=== PATIENT | female | born 1970 | race Caucasian/White ===

== ENCOUNTER → 2021-05-31 07:33 | Outpatient (CLI) | payer OTHER, SELFPAY ==
--- NOTE | 2021-05-31 07:38 | CT_ITS ---
STUDY: CT ABDOMEN AND PELVIS WITH AND WITHOUT CONTRAST REASON FOR EXAM: Female, 51 years old. HEMATURIA RADIATION DOSAGE (If Supplied By Facility): CTDIvol = ( 13.25 ) mGy, DLP = ( 1647.40 ) mGycm TECHNIQUE: Transaxial images were obtained from the dome of the diaphragm to the symphysis pubis without oral contrast. IV 100mL Isovue-300 was administered. Sagittal and coronal images were reconstructed. Individualized dose optimization techniques were used for this CT. COMPARISON: None. FINDINGS: The visualized lung bases are unremarkable. The visualized portions of the heart are within normal limits. Normal liver. There is a solitary gallstone. Normal spleen. Normal pancreas. Normal bilateral adrenal glands. Normal right kidney. Tiny (1 to 2 mm) (nonobstructing stone in the lower pole the left kidney. No hydronephrosis, ureteral stone, ureteral dilatation. Normal visualized stomach. Normal small intestine. Normal colon. The appendix is visualized and appears normal. Normal abdominal aorta. Normal inferior vena cava. Normal retroperitoneum. Normal urinary bladder. Normal abdominal wall. Normal osseous structures. CT/CT Abd/Pelvis W/WO Contrast IMPRESSION: 1. Tiny (1 to 2 mm) nonobstructing stone in the lower pole the left kidney. 2. Cholelithiasis. Electronically Signed: Thompson Kelly MD at 8:57 EDT Tel , Service support ,
== END ==
PROVIDERS: PCP Family Medicine; Referring Provider Nurse Practitioner Adult Health; Visit Provider Nurse Practitioner Adult Health
DX: R31.29 Other microscopic hematuria (principal)
CPT/HCPCS: 74178; 87086; Q9967

== ENCOUNTER 2022-08-17 16:04 | Emergency (ER) | payer OTHER, SELFPAY ==
[2022-08-17] VITALS (9 sets, daily range): BP systolic 130; BP diastolic 73; PULSE 100–113; RESP 18–23; TEMP 36.4; O2SAT 87–94; BMI 25.8
--- NOTE | 2022-08-17 16:18 | EX.ED.DYSGE1 ---
HPI History of Present Illness Chief Complaint: Shortness of Breath Informant: patient Narrative Narrative: Patient presents with cough shortness of breath and wheezing. She states her symptoms started about 6 days ago. She thought it was just allergies with some mild nasal congestion and a dry cough. She is bringing up a small amount of slightly yellow sputum. No blood. She states last night she coughed really hard and was hard to catch her breath. But this has resolved. She has a history of asthma/COPD. She is on Symbicort. She has albuterol inhaler but is now out of it. She does have a nebulizer at home but also does not have meds currently. She states she has not been having fevers or chills. She is not having chest pain. No myalgias. No nausea vomiting. [facility] Medical History (Updated 08/17/22 @ 19:[address] Esequiel Mills MD) Asthma COPD (chronic obstructive pulmonary disease) Home Medications albuterol sulfate 90 mcg/actuation aerosol inhaler (Ventolin HFA) 2 puff inhalation Q6H PRN PRN Dyspnea 03/21/15 [History Last Taken 03/27/15 03:30] budesonide-formoterol HFA 80 mcg-4.5 mcg/actuation aerosol inhaler (Symbicort) 2 puff inhalation BID 03/21/15 [History Last Taken Unknown] ferrous sulfate 325 mg (65 mg iron) tablet 325 mg PO DAILY 03/21/15 [History Last Taken Unknown] loratadine 10 mg tablet (Allergy Relief (loratadine)) 10 mg PO DAILY 03/21/15 [History Last Taken Unknown] multivitamin,oa-qgrf-pippykyb 27 mg-0.4 mg tablet (Therems-M) 1 tab PO DAILY 03/21/15 [History Last Taken Unknown] triamcinolone acetonide 55 mcg nasal spray aerosol (Nasacort) 2 spray NS DAILY 03/21/15 [History Last Taken Unknown] docusate sodium 100 mg capsule (DOK) 100 mg PO BID PRN PRN Constipation ##60 03/27/15 [Rx Last Taken Unknown] oxycodone 5 mg tablet 5 - 10 mg PO Q6H PRN PRN Mod-Severe (Pain Scale 6-10) ##20 03/27/15 [Rx Last Taken Unknown] ciprofloxacin HCl 0.3 % eye drops (Ciloxan) 1 - 2 drp Q4H ##1 07/09/15 [Rx Last Taken Unknown] albuterol sulfate 2.5 mg/3 mL (0.083 %) solution for nebulization 2.5 mg (3 mL) inhalation Q4H PRN #25 vials 08/17/22 [Rx Last Taken Unknown] albuterol sulfate 90 mcg/actuation aerosol inhaler (Ventolin HFA) 2 puff inhalation Q4H PRN PRN Wheezing ##1 08/17/22 [Rx Last Taken Unknown] doxycycline monohydrate 100 mg capsule 100 mg PO BID #20 caps 08/17/22 [Rx Last Taken Unknown] prednisone 20 mg tablet 60 mg PO DAILY #15 tabs 08/17/22 [Rx Last Taken Unknown] Allergy/AdvReac Type Severity Reaction Status Date / Time No Known Allergies Allergy Verified 08/17/22 16:07 Social History Smoking Status: Current every day smoker tobacco type: cigarettes ROS ROS ED Constitutional Constitutional ED: Denies chills, fever(s), subjective or sweats Eyes Eyes: Denies change in vision ENT ENT ED: Reports rhinorrhea; Denies sore throat Cardiovascular Cardiovascular: Denies chest pain or palpitations Respiratory/Chest Respiratory/Chest: Reports cough, dyspnea and sputum Gastrointestinal Gastrointestinal: Denies abdominal pain, nausea or vomiting Genitourinary Genitourinary ED: Denies hematuria Musculoskeletal Musculoskeletal: Denies arthralgias or myalgias Integumentary Denies rash Neurologic Neurologic: Denies headache(s) Endocrine Endocrinology: Denies polydipsia or polyuria Hematologic/Lymphatic Hematologic/Lymphatic: Denies easy bleeding or easy bruising Allergic/Immunologic Allergic/Immunologic ED: Denies urticaria EXAM Physical Exam Const Vital Signs: 08/17/22 16:05 08/17/22 16:44 08/17/22 16:50 Temperature 97.5 F L Temperature Source Temporal Pulse Rate 110 H 101 H Respiratory Rate 20 H 23 H Respiratory Effort Short of Breath Respiratory Depth Shallow Respiratory Pattern Tachypnea Tachypnea Blood Pressure 130/73 H Blood Pressure Mean 92 Pulse Ox 94 Oxygen Delivery Method Room Air Room Air Oxygen Flow Rate (L/min) Fraction of Inspired Oxygen (FIO2) 08/17/22 16:56 08/17/22 17:10 08/17/22 17:11 Temperature Temperature Source Pulse Rate Respiratory Rate Respiratory Effort Respiratory Depth Respiratory Pattern Blood Pressure Blood Pressure Mean Pulse Ox 92 87 Oxygen Delivery Method Nasal Cannula Room Air Nasal Cannula Oxygen Flow Rate (L/min) 3 2 Fraction of Inspired Oxygen (FIO2) 94 08/17/22 18:08 08/17/22 18:12 Temperature Temperature Source Pulse Rate 100 113 H Respiratory Rate 19 H 18 Respiratory Effort Respiratory Depth Respiratory Pattern Tachypnea Blood Pressure Blood Pressure Mean Pulse Ox 92 Oxygen Delivery Method Nasal Cannula Oxygen Flow Rate (L/min) 2 Fraction of Inspired Oxygen (FIO2) Positive well nourished and well developed Constitutional Narrative: Spite her wheezing and increased heart rate, the patient looks surprisingly nontoxic. She carries on a very normal conversation. She does not look ill. General Appearance ED: well developed and NAD; Negative for cyanotic or diaphoretic HEENT Reports moist mucous membranes HEENT Narrative: No sinus tenderness. No rhinorrhea. Negative for trauma Eyes General Eye ED: Negative for scleral icterus Neck no JVD Neck Narrative: No JVD or stridor Chest Wall inspection of chest normal and palpation of chest normal Resp normal respiratory effort Resp Narrative: Patient has diffuse wheezing throughout. But I do not hear rhonchi. No pain with a deep breath. She is breathing easily. She carries on a normal conversation. Her saturations are 94 to 95% on room air showing no hypoxia. Auscultation: wheezes; Negative for rales or rhonchi Cardio regular rate and regular rhythm Rate: other Other Details: Heart rates about 90-95 at this time. She is sitting in bed when I listen to her though. ; Negative for tachycardic GI normal to inspection, nondistended, normoactive bowel sounds and non-tender Palpation: soft Back/Spine no CVA tenderness Extremity normal to inspection General Extremety ED: Negative for edema or tenderness General Extremity: Negative for edema Neuro Sensorium / Orientation: alert Psych mental status grossly normal Skin no rashes or lesions noted MDM MDM MDM Narrative Medical decision making narrative: X-ray as below. We will treat antibiotics. Oxygen level actually desatted once to 86%. But patient felt fine. I find out that when she walked it was bouncing between 86 and 92%. Patient states she feels much better. She is breathing well. She does not want to stay in the hospital. She is relaxed and comfortable. I gave her another breathing treatment. She is satting about 91 or 2% now. I think she is okay to go home. We discussed reasons to return. Radiography Diagnostic Testing: Clinical Impression(s) from Imaging Studies Chest X-Ray 08/17/22 16:19 IMPRESSION: Subtle focus of nodular density measuring up to 8.8 mm or ground glass opacity in the right apex for which further evaluation is suggested with CT scan of the chest to exclude nodule and/or infiltrates. Electronically Signed: Maxine Stokes MD at 16:37 EST , X-ray showed a small density that could be nodule and/or infiltrate. Considering she has a little bit of yellow sputum production and its coughing with COPD I will treat with antibiotics. Discharge Plan Triage Chief Complaint: Shortness of Breath ED Provider: Esequiel Mills Dx/Rx/DC Orders Clinical Impression: Asthma exacerbation, Pneumonia Instructions: ED Asthma, Acute (Adult) Prescriptions: New albuterol sulfate 2.5 mg /3 mL (0.083 %) solution for nebulization 2.5 mg inhalation Q4H PRN Qty: 25 2RF Rx Instructions: Use q4 hours and PRN for wheezing albuterol sulfate [Ventolin HFA] 90 mcg/actuation HFA aerosol inhaler 2 puff inhalation Q4H PRN PRN (Reason: Wheezing) Qty: 1 0RF prednisone 20 mg tablet 60 mg PO DAILY Qty: 15 0RF doxycycline monohydrate 100 mg capsule 100 mg PO BID Qty: 20 0RF No Action ferrous sulfate 325 MG tablet 325 mg PO DAILY Label Comments: iron supplement triamcinolone acetonide [Nasacort] 10.8 ML aerosol,spray 2 spray NS DAILY Label Comments: allergies albuterol sulfate [Ventolin HFA] 1 INHALER inhaler 2 puff inhalation Q6H PRN PRN (Reason: Dyspnea) Label Comments: shortness of breath, wheezing loratadine [Allergy Relief (loratadine)] 10 MG tablet 10 mg PO DAILY Label Comments: allergies multivitamin,jk-dsdl-knhqpulh [Therems-M] 1 TABLET tablet 1 tab PO DAILY Label Comments: multivitamin supplement budesonide-formoterol [Symbicort] 1 INHALER inhaler 2 puff inhalation BID Label Comments: asthma oxycodone 5 MG tablet 5 - 10 mg PO Q6H PRN PRN (Reason: Mod-Severe (Pain Scale 6-10)) Qty: 20 0RF Label Comments: moderate to severe pain docusate sodium [DOK] 100 MG capsule 100 mg PO BID PRN PRN (Reason: Constipation) Qty: 60 0RF Label Comments: stool softener for constipation ciprofloxacin HCl [Ciloxan] 5 ML drops 1 - 2 drp Right Eye Q4H Qty: 1 0RF Rx Instructions: For the next 3 days Primary Care Provider: Paulino Tabares Referrals: Paulino Tabares MD [Primary Care Provider] - 3-5 Days if not improving Disposition Disposition: Home, Self Care
--- NOTE | 2022-08-17 16:19 | RAD_ITS ---
STUDY: X-RAY CHEST REASON FOR EXAM: Female, 52 years old. Cough TECHNIQUE: PA and lateral views of the chest. COMPARISON: November 30, 2013 chest x-ray FINDINGS: There is a pattern of subtle focal density within the right apex. There is a subtle density measuring 8.8 mm not seen on the prior study. There are several focal lucencies in the lungs which could potentially represent emphysematous change. There is no demonstrated pleural abnormality. Normal size heart. There are subcentimeter calcified mediastinal lymph nodes. Normal visualized pulmonary arteries. Normal visualized aortic arch and descending thoracic aorta. Normal visualized thoracic spine. Normal visualized ribs, clavicles, and shoulders. There is no demonstrated abnormality of the visualized soft tissue structures of the upper abdomen. RAD/Chest PA and Lateral IMPRESSION: Subtle focus of nodular density measuring up to 8.8 mm or ground glass opacity in the right apex for which further evaluation is suggested with CT scan of the chest to exclude nodule and/or infiltrates. Electronically Signed: Maxine Stokes MD at 16:37 EST ,
[2022-08-17] MEDS: predniSONE 20 MG Tablet 60 MG PO (16:24)
[2022-08-17] MEDS: Ipratropium/Albuterol Sulfate 3 ML AMPUL.NEB INHALATION (16:47)
[2022-08-17] MEDS: Albuterol 2.5 MG/3 ML VIAL.NEB. INHALATION ×2 (16:47→18:08)
== END 2022-08-17 19:16 | disposition home or self-care (01) ==
PROVIDERS: Emergency Provider Emergency Medicine; PCP Family Medicine; Visit Provider Emergency Medicine
DX: J18.9 Pneumonia, unspecified organism (principal); J44.9 Chronic obstructive pulmonary disease, unspecified; F17.210 Nicotine dependence, cigarettes, uncomplicated; J45.901 Unspecified asthma with (acute) exacerbation; Z79.899 Other long term (current) drug therapy; Z79.52 Long term (current) use of systemic steroids
CPT/HCPCS: 71046; 94640; 99283

== ENCOUNTER 2022-09-26 15:51 | Emergency (ER) | payer OTHER, SELFPAY ==
[2022-09-26 15:53] VITALS: BP 129/91; PULSE 128; RESP 18; TEMP 36.3; O2SAT 95; BMI 25.0
--- NOTE | 2022-09-26 16:20 | RAD_ITS ---
STUDY: X-RAY CHEST REASON FOR EXAM: Female, 52 years old. Shortness of breath. Cough and congestion with green nasal discharge. Diagnosis recent pneumonia just finished antibiotics but still feels sick. TECHNIQUE: PA and lateral views of the chest. COMPARISON: August 17, 2022 FINDINGS: Lungs well expanded. There is mild coarsened interstitial markings without focal infiltrate or mass. There is no demonstrated pleural abnormality. Normal size heart. Normal mediastinum. There is stable prominence of the manolo with calcification seen bilaterally.. Normal visualized pulmonary arteries. Normal visualized aortic arch and descending thoracic aorta. Normal visualized thoracic spine. Normal visualized ribs, clavicles, and shoulders. There is no demonstrated abnormality of the visualized soft tissue structures of the upper abdomen. RAD/Chest PA and Lateral IMPRESSION: Question COPD. There is no acute cardiopulmonary disease. Electronically Signed: Christiano Sepulveda DO at 16:34 EST ,
[2022-09-26 17:52] VITALS: O2SAT 95
[2022-09-26] MEDS: predniSONE 20 MG Tablet 60 MG PO (19:12)
--- NOTE | 2022-09-26 19:18 | EDS_ITS ---
HPI History of Present Illness Chief Complaint: Cough Informant: patient Narrative Narrative: Patient presents with continuing cough and dyspnea. I saw her about a month ago. She was treated with steroids inhalers and doxycycline. She states she was getting better. But it did not fully resolve. She saw her physician about 2 weeks later. She had some wheezing so she was put on steroids. She still been having wheezing. She is now starting to bring up a little bit of green sputum. No fevers no chills and no chest pain. No leg swelling. No history of DVT or PE. No hemoptysis. She had an appointment to see her physician today but then they called that they had overbooked so she came in here. She did quit smoking over the last 2 days. She was counseled on the need to quit this permanently. [facility] Medical History Asthma COPD (chronic obstructive pulmonary disease) Home Medications albuterol sulfate 90 mcg/actuation aerosol inhaler (Ventolin HFA) 2 puff inhalation Q6H PRN PRN Dyspnea 03/21/15 [History Last Taken 03/27/15 03:30] budesonide-formoterol HFA 80 mcg-4.5 mcg/actuation aerosol inhaler (Symbicort) 2 puff inhalation BID 03/21/15 [History Last Taken Unknown] ferrous sulfate 325 mg (65 mg iron) tablet 325 mg PO DAILY 03/21/15 [History Last Taken Unknown] loratadine 10 mg tablet (Allergy Relief (loratadine)) 10 mg PO DAILY 03/21/15 [History Last Taken Unknown] multivitamin,lz-ogif-xmewgynt 27 mg-0.4 mg tablet (Therems-M) 1 tab PO DAILY 03/21/15 [History Last Taken Unknown] triamcinolone acetonide 55 mcg nasal spray aerosol (Nasacort) 2 spray NS DAILY 03/21/15 [History Last Taken Unknown] docusate sodium 100 mg capsule (DOK) 100 mg PO BID PRN PRN Constipation ##60 03/27/15 [Rx Last Taken Unknown] oxycodone 5 mg tablet 5 - 10 mg PO Q6H PRN PRN Mod-Severe (Pain Scale 6-10) ##20 03/27/15 [Rx Last Taken Unknown] ciprofloxacin HCl 0.3 % eye drops (Ciloxan) 1 - 2 drp Q4H ##1 07/09/15 [Rx Last Taken Unknown] albuterol sulfate 2.5 mg/3 mL (0.083 %) solution for nebulization 2.5 mg (3 mL) inhalation Q4H PRN #25 vials 08/17/22 [Rx Last Taken Unknown] albuterol sulfate 90 mcg/actuation aerosol inhaler (Ventolin HFA) 2 puff inhalation Q4H PRN PRN Wheezing ##1 08/17/22 [Rx Last Taken Unknown] doxycycline monohydrate 100 mg capsule 100 mg PO BID #20 caps 08/17/22 [Rx Last Taken Unknown] prednisone 20 mg tablet 60 mg PO DAILY #15 tabs 08/17/22 [Rx Last Taken Unknown] amoxicillin 875 mg-potassium clavulanate 125 mg tablet 1 tab PO BID #20 tabs 09/26/22 [Rx Last Taken Unknown] prednisone 20 mg tablet 60 mg PO DAILY #15 tabs 09/26/22 [Rx Last Taken Unknown] Allergy/AdvReac Type Severity Reaction Status Date / Time No Known Allergies Allergy Verified 09/26/22 15:55 Social History Smoking Status: Current every day smoker tobacco type: cigarettes ROS ROS ED Constitutional Constitutional ED: Denies chills or fever(s) Eyes Eyes: Denies change in vision ENT ENT ED: Denies rhinorrhea or sore throat Cardiovascular Cardiovascular: Denies chest pain, palpitations or racing heartbeat Respiratory/Chest Respiratory/Chest: Reports cough, dyspnea and sputum Gastrointestinal Gastrointestinal: Denies abdominal pain, nausea or vomiting Genitourinary Genitourinary ED: Denies dysuria Musculoskeletal Musculoskeletal: Denies arthralgias or myalgias Integumentary Denies rash Neurologic Neurologic: Denies headache(s) Hematologic/Lymphatic Hematologic/Lymphatic: Denies lymphadenopathy Allergic/Immunologic Allergic/Immunologic ED: Denies urticaria EXAM Physical Exam Const Vital Signs: 09/26/22 15:53 09/26/22 17:52 09/26/22 20:04 Temperature 97.4 F L Temperature Source Temporal Pulse Rate 128 H 86 Respiratory Rate 18 18 Respiratory Effort Normal Non-Labored Respiratory Depth Normal Respiratory Pattern Normal Normal Blood Pressure 129/91 H Blood Pressure Mean 103 Pulse Ox 95 Oxygen Delivery Method Room Air Room Air 09/26/22 20:04 Temperature Temperature Source Pulse Rate Respiratory Rate 22 H Respiratory Effort Normal Non-Labored Short of Breath Respiratory Depth Shallow Respiratory Pattern Tachypnea Blood Pressure Blood Pressure Mean Pulse Ox 95 Oxygen Delivery Method Room Air Positive well nourished and well developed Constitutional Narrative: Patient awake alert no acute distress. She is breathing comfortably. I do hear wheezing though. General Appearance ED: well developed and NAD HEENT Reports moist mucous membranes Eyes General Eye ED: Negative for scleral icterus Neck no JVD Neck Narrative: No stridor Resp normal respiratory effort Resp Narrative: Respiratory effort seems normal. But she does have decreased breath sounds and wheezing throughout. No rhonchi. No rales. No pain with a deep breath. Auscultation: wheezes and diminished lung sounds; Negative for rales or rhonchi Cardio regular rate and regular rhythm GI non-tender Back/Spine no CVA tenderness Extremity normal to inspection General Extremety ED: Negative for edema or tenderness General Extremity: Negative for edema Neuro oriented x3 Sensorium / Orientation: alert Psych mental status grossly normal Skin no wounds MDM MDM MDM Narrative Medical decision making narrative: Chest x-ray is not showing a lobar infiltrate. Patient is feeling better after treatments. She is moving much more air. She does not want to come in the hospital. I explained that we will get her back on some prednisone. Since she has a change in both the quantity and color of her sputum I will add antibiotics. She is not having chest pain. She has no known risk factor for PE. No hemoptysis. I do not think she needs CTA of the chest. She will follow-up with her primary physician. It was again encouraged for her to stop smoking as this is a significant contributor to her respiratory problems. Radiography Diagnostic Testing: Clinical Impression(s) from Imaging Studies Chest X-Ray 09/26/22 16:20 IMPRESSION: Question COPD. There is no acute cardiopulmonary disease. Electronically Signed: Christiano Sepulveda DO at 16:34 EST Reading Location ID and State: [facility] / [place] Tel [phone], Service support , Chest x-ray shows COPD but no sign of acute infiltrate. Discharge Plan Triage Chief Complaint: Cough ED Provider: Esequiel Mills Dx/Rx/DC Orders Clinical Impression: COPD with exacerbation Instructions: ED COPD Flare Prescriptions: New prednisone 20 mg tablet 60 mg PO DAILY Qty: 15 0RF amoxicillin-pot clavulanate 875-125 mg tablet 1 tab PO BID Qty: 20 0RF No Action ferrous sulfate 325 MG tablet 325 mg PO DAILY Label Comments: iron supplement triamcinolone acetonide [Nasacort] 10.8 ML aerosol,spray 2 spray NS DAILY Label Comments: allergies albuterol sulfate [Ventolin HFA] 1 INHALER inhaler 2 puff inhalation Q6H PRN PRN (Reason: Dyspnea) Label Comments: shortness of breath, wheezing loratadine [Allergy Relief (loratadine)] 10 MG tablet 10 mg PO DAILY Label Comments: allergies multivitamin,al-mxis-nlgjcwmb [Therems-M] 1 TABLET tablet 1 tab PO DAILY Label Comments: multivitamin supplement budesonide-formoterol [Symbicort] 1 INHALER inhaler 2 puff inhalation BID Label Comments: asthma oxycodone 5 MG tablet 5 - 10 mg PO Q6H PRN PRN (Reason: Mod-Severe (Pain Scale 6-10)) Qty: 20 0RF Label Comments: moderate to severe pain docusate sodium [DOK] 100 MG capsule 100 mg PO BID PRN PRN (Reason: Constipation) Qty: 60 0RF Label Comments: stool softener for constipation ciprofloxacin HCl [Ciloxan] 5 ML drops 1 - 2 drp Right Eye Q4H Qty: 1 0RF Rx Instructions: For the next 3 days albuterol sulfate 2.5 mg /3 mL (0.083 %) solution for nebulization 2.5 mg inhalation Q4H PRN Qty: 25 2RF Rx Instructions: Use q4 hours and PRN for wheezing albuterol sulfate [Ventolin HFA] 90 mcg/actuation HFA aerosol inhaler 2 puff inhalation Q4H PRN PRN (Reason: Wheezing) Qty: 1 0RF prednisone 20 mg tablet 60 mg PO DAILY Qty: 15 0RF doxycycline monohydrate 100 mg capsule 100 mg PO BID Qty: 20 0RF Primary Care Provider: Lyubov Car NP Referrals: Lyubov Car NP, SIGNAL PERSON-C [Primary Care Provider] - 3-5 Days Disposition Disposition: Home, Self Care
[2022-09-26 20:04] VITALS: PULSE 86; RESP 18; RESP 22; O2SAT 95
[2022-09-26] MEDS: Ipratropium/Albuterol Sulfate 3 ML AMPUL.NEB INHALATION (20:04)
[2022-09-26] MEDS: Albuterol 2.5 MG/3 ML VIAL.NEB. INHALATION (20:04)
--- NOTE | 2022-09-26 20:39 | CPS ---
x1 Albuterol given to pt. in ER as well
[2022-09-26 20:53] VITALS: O2SAT 99
== END 2022-09-26 20:54 | disposition home or self-care (01) ==
PROVIDERS: Emergency Provider Emergency Medicine; PCP Nurse Practitioner Primary Care; Visit Provider Emergency Medicine
DX: J44.1 Chronic obstructive pulmonary disease with (acute) exacerbation (principal); R06.00 Dyspnea, unspecified; F17.210 Nicotine dependence, cigarettes, uncomplicated; Z79.52 Long term (current) use of systemic steroids
CPT/HCPCS: 71046; 94640; 99251; 99283; G0463

== ENCOUNTER 2022-11-17 02:04 | Emergency (ER) | payer OTHER, SELFPAY ==
[2022-11-17 02:05] VITALS: BP 124/101; PULSE 101; RESP 24; TEMP 36.7; O2SAT 88; BMI 25.1
[2022-11-17 02:11] VITALS: O2SAT 90; O2SAT 91
--- NOTE | 2022-11-17 02:15 | EKG12_ITS ---
Test Reason : SOB Blood Pressure : / mmHG Vent. Rate : 086 BPM Atrial Rate : 086 BPM P-R Int : 120 ms QRS Dur : 092 ms QT Int : 376 ms P-R-T Axes : 077 076 058 degrees QTc Int : 449 ms Normal sinus rhythm Right atrial enlargement Borderline ECG Confirmed by BENNETT ALEJANDRA, NARENDRA ([id number]), web editor BETTY OSWALD ([id number]) on 11/18/2022 1:13:41 PM Referred By: Yun Carmen Confirmed By:NARENDRA GUAJARDO MD
--- NOTE | 2022-11-17 02:17 | EX.ED.DYSGE1 ---
HPI History of Present Illness Chief Complaint: Shortness of Breath Informant: patient Onset/Context/Timing Onset: Days (3 days) Narrative Narrative: Patient presents with shortness of breath, cough, left lower rib pain. She states that she got ill about 3 days ago with shortness of breath, wheezing, cough with green sputum production. She states after a coughing fit she developed pain to the left lower ribs. She states tonight she could not handle the pain any longer and came in for evaluation. She has not had fever or chills. [facility] Medical History Asthma COPD (chronic obstructive pulmonary disease) Home Medications albuterol sulfate 90 mcg/actuation aerosol inhaler (Ventolin HFA) 2 puff inhalation Q6H PRN PRN Dyspnea 03/21/15 [History Last Taken 03/27/15 03:30] budesonide-formoterol HFA 80 mcg-4.5 mcg/actuation aerosol inhaler (Symbicort) 2 puff inhalation BID 03/21/15 [History Last Taken Unknown] ferrous sulfate 325 mg (65 mg iron) tablet 325 mg PO DAILY 03/21/15 [History Last Taken Unknown] loratadine 10 mg tablet (Allergy Relief (loratadine)) 10 mg PO DAILY 03/21/15 [History Last Taken Unknown] multivitamin,lb-oual-gpveyfua 27 mg-0.4 mg tablet (Therems-M) 1 tab PO DAILY 03/21/15 [History Last Taken Unknown] triamcinolone acetonide 55 mcg nasal spray aerosol (Nasacort) 2 spray NS DAILY 03/21/15 [History Last Taken Unknown] ciprofloxacin HCl 0.3 % eye drops (Ciloxan) 1 - 2 drp Q4H ##1 07/09/15 [Rx Last Taken Unknown] albuterol sulfate 2.5 mg/3 mL (0.083 %) solution for nebulization 2.5 mg (3 mL) inhalation Q4H PRN #25 vials 08/17/22 [Rx Last Taken Unknown] levofloxacin 750 mg tablet 750 mg PO DAILY #4 tabs 11/17/22 [Rx Last Taken Unknown] oxycodone 5 mg tablet 5 mg PO Q6H PRN pain 3 days #10 tabs 11/17/22 [Rx Last Taken Unknown] Allergy/AdvReac Type Severity Reaction Status Date / Time No Known Allergies Allergy Verified 11/17/22 02:07 Social History Smoking Status: Current every day smoker tobacco type: cigarettes ROS ROS ED Constitutional Constitutional ED: Denies chills or fever(s) Eyes Eyes: Denies change in vision or discharge from eye(s) ENT ENT ED: Denies discharge from eye(s), rhinorrhea or sore throat Cardiovascular Cardiovascular: Reports chest pain; Denies palpitations Respiratory/Chest Respiratory/Chest: Reports cough and dyspnea Gastrointestinal Gastrointestinal: Denies abdominal pain, diarrhea, nausea or vomiting Genitourinary Genitourinary ED: Denies dysuria Musculoskeletal Musculoskeletal: Denies back pain or extremity pain Integumentary Denies Abrasions or rash Neurologic Neurologic: Denies headache(s) or weakness Psychiatric Psychiatric: Denies anxiety or depression Allergic/Immunologic Allergic/Immunologic ED: Denies lip swelling or urticaria EXAM Physical Exam Const Vital Signs: 11/17/22 02:05 11/17/22 02:11 11/17/22 02:11 Temperature 98.1 F Temperature Source Oral Pulse Rate 101 H Respiratory Rate 24 H Respiratory Effort Short of Breath Respiratory Depth Shallow Respiratory Pattern Tachypnea Blood Pressure 124/101 H Blood Pressure Mean 108 Pulse Ox 88 90 Oxygen Delivery Method Room Air Nasal Cannula Nasal Cannula Oxygen Flow Rate (L/min) 2 2 11/17/22 02:31 11/17/22 02:31 11/17/22 03:20 Temperature Temperature Source Pulse Rate 88 86 Respiratory Rate 18 20 H Respiratory Effort Respiratory Depth Respiratory Pattern Normal Normal Blood Pressure Blood Pressure Mean Pulse Ox 93 Oxygen Delivery Method Nasal Cannula Oxygen Flow Rate (L/min) 3 11/17/22 04:16 Temperature 97.7 F L Temperature Source Oral Pulse Rate 86 Respiratory Rate 15 Respiratory Effort Respiratory Depth Respiratory Pattern Blood Pressure 109/61 Blood Pressure Mean 77 Pulse Ox 90 Oxygen Delivery Method Nasal Cannula Oxygen Flow Rate (L/min) 1 Positive well nourished and well developed General Appearance ED: well developed HEENT Reports normocephalic and head/scalp atraumatic Eyes PERRL and EOMs intact bilaterally Neck supple Chest Wall inspection of chest normal Chest Narrative: Mild tenderness outpatient to left lower anterior ribs. No crepitus. Resp Resp Narrative: Mild tachypnea with shallow breaths. Coarse breath sounds noted bilaterally. 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 EKG obtained to evaluate for ischemia/arrhythmia. CBC and chemistry studies obtained to evaluate for leukocytosis, anemia, electrolyte derangement. Normal chest x-ray obtained. Patient given a dose of IV Solu-Medrol as well as breathing treatments given her diminished air movement and coarse breath sounds. She was given morphine and Zofran for pain. Lab Data Attestation: I reviewed the patient's lab results. Labs: Laboratory Results - last 24 hr 11/17/22 11/17/22 02:10 02:10 WBC 7.9 RBC 4.30 Hgb 13.8 Hct 42.4 MCV 98.6 MCH 32.1 H MCHC 32.5 RDW Std Deviation 59.5 H RDW Coeff of [place] 16.3 H Plt Count 343 MPV 9.1 Immature Gran % (Auto) 0.100 Neut % (Auto) 59.6 Lymph % (Auto) 18.0 L Morris % (Auto) 13.5 H Eos % (Auto) 7.8 H Baso % (Auto) 1.0 Absolute Neuts (auto) 4.7 Absolute Lymphs (auto) 1.42 Nucleated RBC % 0 Sodium 140 Potassium 4.2 Chloride 104 Carbon Dioxide 30.0 Anion Gap 6 BUN 13 Creatinine 0.80 Estim Creat Clear Calc 83.92 Est GFR (MDRD) Af Amer 97 Est GFR (MDRD) Non-Af 80 BUN/Creatinine Ratio 16.2 Glucose 94 Calcium 9.6 Radiography Chest X-Ray - ED: 1 View, Read by ED Physician, Chronic Changes and No Infiltrates Diagnostic Testing: Clinical Impression(s) from Imaging Studies Chest X-Ray 11/17/22 02:50 IMPRESSION: Early pneumonia in the left lower lobe. Electronically Signed: Margie Hernandez MD at 3:15 EST Reading Location ID and State: [facility] / [place] Tel , Service support , EKG Initial EKG: Attestation: I personally reviewed and interpreted this EKG as follows: Interpretation: Sinus Rhythm (Sinus 86 with no acute ischemia.) Treatment and Re-Evaluation Narrative: CBC and chemistry studies are unremarkable. Portable chest x-ray per my interpretation reveals no acute abnormalities. Radiology interpretation is reviewed. They do feel she has an early left lower lobe infiltrate. This does correlate to the area of the patient's pain. EKG reveals no acute ischemia. After medication and breathing treatments patient's symptoms are improved. She is able to be titrated off of oxygen. When ambulating her O2 sat is between 90 and 92%. Patient was given a dose of Levaquin for her pneumonia. She be given prescription for oxycodone and Levaquin. She has a pulse ox meter at home. I advised her if she drops below 88% she needs to come in for oxygen. We discussed appropriate ambulation and deep breathing to keep her oxygen levels up. Discharge Plan Triage Chief Complaint: Shortness of Breath ED Provider: Yun Carmen Dx/Rx/DC Orders Clinical Impression: COPD exacerbation, Chest wall pain, Pneumonia Instructions: ED COPD Flare, ED Pneumonia (Adult) Prescriptions: New oxycodone 5 mg tablet 5 mg PO Q6H PRN (Reason: pain) 3 Days Qty: 10 0RF levofloxacin 750 mg tablet 750 mg PO DAILY Qty: 4 0RF No Action ferrous sulfate 325 MG tablet 325 mg PO DAILY Label Comments: iron supplement triamcinolone acetonide [Nasacort] 10.8 ML aerosol,spray 2 spray NS DAILY Label Comments: allergies albuterol sulfate [Ventolin HFA] 1 INHALER inhaler 2 puff inhalation Q6H PRN PRN (Reason: Dyspnea) Label Comments: shortness of breath, wheezing loratadine [Allergy Relief (loratadine)] 10 MG tablet 10 mg PO DAILY Label Comments: allergies Therems-M 1 TABLET tablet 1 tab PO DAILY Label Comments: multivitamin supplement budesonide-formoterol [Symbicort] 1 INHALER inhaler 2 puff inhalation BID Label Comments: asthma ciprofloxacin HCl [Ciloxan] 5 ML drops 1 - 2 drp Right Eye Q4H Qty: 1 0RF Rx Instructions: For the next 3 days albuterol sulfate 2.5 mg /3 mL (0.083 %) solution for nebulization 2.5 mg inhalation Q4H PRN Qty: 25 2RF Rx Instructions: Use q4 hours and PRN for wheezing Primary Care Provider: Lyubov Car NP Referrals: Lyubov Car NP, RECREATION ATTENDANT-C [Primary Care Provider] - 3-5 Days Disposition Disposition: Home, Self Care
[2022-11-17] MEDS: Ondansetron 4 MG/2 ML Vial IV (02:21)
[2022-11-17] MEDS: MethylPREDNISolone 125 MG/2 ML Vial IV (02:21)
[2022-11-17] MEDS: Morphine 4 MG/ML Syringe IV (02:21)
[2022-11-17 02:23] LABS: Absolute Lymphocyte Count 1.42 X10^3/uL (0.83-4.51); Absolute Neutrophil Count 4.7 X10^3/uL (2.0-7.7); Basophil# 0.08 X10^3/uL; Eosinophil# 0.62 X10^3/uL; Eosinophils% 7.8 % (0-5); Hematocrit 42.4 % (37-47); Hemoglobin 13.8 g/dL (12.0-15.0); Lymphocyte # 1.42 X10^3/ul (0.83-4.51); Mean Corp Hgb Conc 32.5 g/dL (32-36); Mean Corpuscular Hgb 32.1 pg (27.0-32.0); Mean Corpuscular Volume 98.6 fL (81-99); Mean Platelet Vol. 9.1 fl (6.2-12.0); Monocyte# 1.07 X10^3/uL; Monocyte% 13.5 % (0-10); NRBC Flagged by Analyzer 0 % (0-5); Neutrophil # 4.71 X10^3/uL (2.7-7.7); Neutrophil % 59.6 % (47-70); Platelet Count 343 K/mm3 (150-450); RBC Distribution Width CV 16.3 % (11.6-14.6); RBC Distribution Width SD 59.5 fl (35.1-43.9); White Blood Count 7.9 K/mm3 (4.4-11.0)
[2022-11-17 02:31] VITALS: PULSE 88; RESP 18; O2SAT 93
[2022-11-17] MEDS: Ipratropium/Albuterol Sulfate 3 ML AMPUL.NEB INHALATION (02:31)
[2022-11-17] MEDS: Albuterol 2.5 MG/3 ML VIAL.NEB. INHALATION ×2 (02:31→03:20)
[2022-11-17 02:38] LABS: Anion Gap 6 (5-15); BUN 13 mg/dL (7-18); BUN/Creat Ratio 16.2 RATIO (10-20); Calcium,Total 9.6 mg/dL (8.5-10.1); Chloride 104 mmol/L (98-107); EST Glomerular Filtration Rate 80 mL/min (>60); Est Glom Filt Rate - Afr Amer 97 mL/min (>60); Estimated Creatinine Clearance 83.92 ml/min; Glucose 94 mg/dL (74-106); Potassium 4.2 mmol/L (3.5-5.1); Sodium Level 140 mmol/L (136-145)
--- NOTE | 2022-11-17 02:50 | RAD_ITS ---
INDICATION: sob EXAMINATION/TECHNIQUE: X-RAY - XR Chest 1 View COMPARISON: None. FINDINGS: LINES/DEVICES: None. LUNGS: Ill-defined groundglass opacities are seen in the left lung base suggesting early pneumonia. MEDIASTINUM AND CARDIOVASCULAR STRUCTURES: Cardiac silhouette not enlarged. Central airways and mediastinal contour are unremarkable. BONES AND SOFT TISSUES: Unremarkable. RAD/Chest 1 View (Portable) IMPRESSION: Early pneumonia in the left lower lobe. Electronically Signed: Margie Hernandez MD at 3:15 EST ,
[2022-11-17 03:20] VITALS: PULSE 86; RESP 20
[2022-11-17] MEDS: levoFLOXacin 750 MG Tablet PO (03:55)
[2022-11-17 04:16] VITALS: BP 109/61; PULSE 86; RESP 15; TEMP 36.5; O2SAT 90
[2022-11-17 04:33] VITALS: O2SAT 90
[2022-11-17] MEDS: oxyCODONE 5 MG Tablet PO (04:56)
== END 2022-11-17 05:01 | disposition home or self-care (01) ==
PROVIDERS: Emergency Provider Emergency Medicine; PCP Nurse Practitioner Primary Care; Referring Provider Emergency Medicine; Visit Provider Emergency Medicine
DX: J44.1 Chronic obstructive pulmonary disease with (acute) exacerbation (principal); J44.0 Chronic obstructive pulmonary disease with (acute) lower respiratory infection; J18.9 Pneumonia, unspecified organism; F17.210 Nicotine dependence, cigarettes, uncomplicated; Z79.899 Other long term (current) drug therapy
CPT/HCPCS: 71045; 80048; 85025; 93005; 94640; 96374; 96375; 99285; A4216; J2405

== ENCOUNTER → 2025-01-26 | Outpatient (CLI) | payer OTHER, SELFPAY ==
[2025-01-26 09:15] LABS: Absolute Neutrophil Count 5.3 X10^3/uL (2.0-7.7); Basophil# 0.06 X10^3/uL; Basophil% 0.7 % (0-1); Eosinophil# 0.25 X10^3/uL; Eosinophils% 2.9 % (0-5); Hematocrit 37.2 % (37-47); Hemoglobin 12.2 g/dL (12.0-15.0); Lymphocyte % 23.5 % (19-41); Mean Corp Hgb Conc 32.8 g/dL (32-36); Mean Corpuscular Hgb 30.6 pg (27.0-32.0); Mean Corpuscular Volume 93.2 fL (81-99); Monocyte# 0.92 X10^3/uL; Monocyte% 10.8 % (0-10); NRBC Flagged by Analyzer 0 % (0-5); Neutrophil # 5.26 X10^3/uL (2.7-7.7); Neutrophil % 61.7 % (47-70); Platelet Count 336 K/mm3 (150-450); RBC Distribution Width CV 14.7 % (11.6-14.6); RBC Distribution Width SD 50.1 fl (35.1-43.9); Red Blood Count 3.99 M/mm3 (4.2-5.4); White Blood Count 8.5 K/mm3 (4.4-11.0)
== END | disposition home or self-care (01) ==
PROVIDERS: PCP Nurse Practitioner Primary Care; Referring Provider Internal Medicine Pulmonary Disease; Visit Provider Internal Medicine Pulmonary Disease
DX: J45.50 Severe persistent asthma, uncomplicated (principal)
CPT/HCPCS: 36415; 85025